=== PATIENT | male | born 1950 | race Caucasian/White ===

== ENCOUNTER 2018-03-09 14:40 | Inpatient (IN) | payer MEDICARE, BC ==
[~2018-03-09] VITALS: Ht 182.9 cm; Wt 84.1 kg
--- NOTE | ~2018-03-09 | MORECARE ---
CASE MANAGEMENT DISCHARGE SUMMARY PATIENT: ANDREA ORTEZ UNIT: [id number] ADM DATE: 03/09/18 AGE: 67 : 49 SEX: M ROOM/BED: D.2213 AUTHOR: KLAUS HEARD PHYSICIAN: REFERRING PHYSICIAN: JD ANDERSON MD DATE OF SERVICE: 03/10/18 Discharge Plan Patient Name: ANDREA ORTEZ [facility] [facility] 1950 Planned Disposition: Home with Home Health Anticipated Discharge Date: Discharge Date: Expected LOS: Initial Reviewer: [email or web address] Initial Review Date: 03/09/2018 Generated: 03/10/18 5:41 pm DCPIA - Discharge Planning Initial Assessment Updated by [email or web address]: Leah Tripp on 03/10/18 4:40 pm * Is the patient Alert and Oriented? Yes * How many steps to enter\exit or inside your home? * PCP ALEX * Pharmacy [facility] * Preadmission Environment Home with Family * ADLs Independent * List name and contact numbers for known caregivers / representatives who currently or will assist patient after discharge: GLORIA GUTIERREZBRANDEN [phone] * Verbal permission to speak to the caregivers and representatives has been obtained from the patient. Yes * Community resources currently utilized None * Additional services required to return to the preadmission environment? Yes * Can the patient safely return to the preadmission environment? Yes * Has this patient been hospitalized within the prior 30 days at any hospital? No External Providers External Provider: [facility] Next Contact Date: Service Request Date: Service Type: Resolution: Reviewer: Comments: External Provider: [facility] Next Contact Date: Service Request Date: Service Type: Resolution: Reviewer: Comments: Patient Name: ANDREA ORTEZ Page 20732 at 1641 All edits/amendments must be made on the electronic document DICTATION DATE: 03/10/18 1640 SPREADING MACHINE OPERATOR: AMBER 03/10/18 1640 RPT#: [id number] DC DATE: STATUS: ADM IN [facility] [address] [place] [address] END OF REPORT
--- NOTE | ~2018-03-09 | MORECARE ---
CASE MANAGEMENT DISCHARGE SUMMARY PATIENT: ANDREA ORTEZ UNIT: [id number] ADM DATE: 03/09/18 AGE: 67 : 49 SEX: M ROOM/BED: D.2213 AUTHOR: ORQUIDEA,DOC PHYSICIAN: REFERRING PHYSICIAN: JD ANDERSON MD DATE OF SERVICE: 03/13/18 Discharge Plan Patient Name: ANDREA ORTEZ Facility: [facility]:[place] : 1950 Planned Disposition: Home with Home Health Anticipated Discharge Date: Discharge Date: 03/11/2018 Expected LOS: Initial Reviewer: [email or web address] Initial Review Date: 03/09/2018 Generated: 03/13/18 1:18 pm Comments DCP- Discharge Planning Updated by [email or web address]: Leah Tripp on 03/11/18 1:[address] PATIENT DISCHARGING HOME TODAY WITH [facility] [employer] WALKER HAS BEEN DELIVERED TO HOSPITAL. CM TO FOLLOW AND ASSIST WITH DC PLANNING NEEDS DCP- Discharge Planning Updated by [email or web address]: Leah Tripp on 03/10/18 3:[address] Patient Name: ANDREA ORTEZ Admission Status: ER Accout number: [id number] Admission Date: 03-09-2018 : 1950 Admission Diagnosis: Attending: JD ANDERSON Current LOS: 1 Anticipated DC Date: Planned Disposition: Home with Home Health Primary Insurance: MEDICARE A & B Discharge Planning Comments: CM met with patient to assess discharge planning needs. Patient lives independently at home where he plans to return at pr. He has 5 steps to enter his home. 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 He will need a walker at [place]. I ordered a walker from [facility] . The patient would like to have home health, AIDAN with [facility]. I spoke with Kaelyn. CM will continue to follow and assist with DC planning Jailkeeper: Leah Tripp DCPIA - Discharge Planning Initial Assessment Updated by [email or web address]: Leah Tripp on 03/10/18 4:40 pm * Is the patient Alert and Oriented? Yes * How many steps to enter\exit or inside your home? * PCP JOHNSON * Pharmacy [facility] * Preadmission Environment Home with Family * ADLs Independent * List name and contact numbers for known caregivers / representatives who currently or will assist patient after discharge: ASTER HENNESSY [phone] * Verbal permission to speak to the caregivers and representatives has been obtained from the patient. Yes * Community resources currently utilized None * Additional services required to return to the preadmission environment? Yes * Can the patient safely return to the preadmission environment? Yes * Has this patient been hospitalized within the prior 30 days at any hospital? No Last DP export: 03/11/18 1:05 Patient Name: ANDREA ORTEZ Page 99203 at 1218 All edits/amendments must be made on the electronic document DICTATION DATE: 03/13/181217 MOLDER: AMBER 03/13/181217 RPT#: [id number] DC DATE:03/11/18 STATUS: DIS IN [facility] [address] [place] [address] END OF REPORT
--- NOTE | ~2018-03-09 | MORECARE ---
CASE MANAGEMENT DISCHARGE SUMMARY PATIENT: ANDREA ORTEZ UNIT: [id number] ADM DATE: 03/09/18 AGE: 67 : 49 SEX: M ROOM/BED: D.2213 AUTHOR: ORQUIDEADOC PHYSICIAN: REFERRING PHYSICIAN: JD ANDERSON MD DATE OF SERVICE: 03/11/18 Discharge Plan Patient Name: ANDREA ORTEZ Facility: [facility]:[place] : 1950 Planned Disposition: Home with Home Health Anticipated Discharge Date: Discharge Date: Expected LOS: Initial Reviewer: [email or web address] Initial Review Date: 03/09/2018 Generated: 03/11/18 3:05 pm Comments DCP- Discharge Planning Updated by [email or web address]: Leah Tripp on 03/11/18 1:[address] PATIENT DISCHARGING HOME TODAY WITH [facility] WALKER HAS BEEN DELIVERED TO HOSPITAL. CM TO FOLLOW AND ASSIST WITH DC PLANNING NEEDS DCP- Discharge Planning Updated by [email or web address]: Leah Trpip on 03/10/18 3:[address] Patient Name: ANDREA ORTEZ Admission Status: ER Accout number: [id number] Admission Date: 03-09-2018 : 1950 Admission Diagnosis: Attending: JD ANDERSON Current LOS: 1 Anticipated DC Date: Planned Disposition: Home with Home Health Primary Insurance: MEDICARE A & B Discharge Planning Comments: CM met with patient to assess discharge planning needs. Patient lives independently at home where he plans to return at hi. He has 5 steps to enter his home. 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 He will need a walker at [place]. I ordered a walker from [facility] . The patient would like to have home health, AIDAN with [facility]. I spoke with Kaelyn. CM will continue to follow and assist with DC planning Injection Molding Machine Offbearer: Leah Tripp DCPIA - Discharge Planning Initial Assessment Updated by [email or web address]: Leah Tripp on 03/10/18 4:40 pm * Is the patient Alert and Oriented? Yes * How many steps to enter\exit or inside your home? * PCP JOHNSON * Pharmacy [facility] * Preadmission Environment Home with Family * ADLs Independent * List name and contact numbers for known caregivers / representatives who currently or will assist patient after discharge: ASTER HENNESSY [phone] * Verbal permission to speak to the caregivers and representatives has been obtained from the patient. Yes * Community resources currently utilized None * Additional services required to return to the preadmission environment? Yes * Can the patient safely return to the preadmission environment? Yes * Has this patient been hospitalized within the prior 30 days at any hospital? No Last DP export: 03/10/18 3:50 Patient Name: ANDREA ORTEZ Page 78534 at 1405 All edits/amendments must be made on the electronic document DICTATION DATE: 03/11/181404 FLAT GRINDER OPERATOR: AMBER 03/11/18 140 RPT#: [id number] DC DATE: STATUS: ADM IN [facility] [address] [place] [address] END OF REPORT
--- NOTE | ~2018-03-09 | MORECARE ---
CASE MANAGEMENT DISCHARGE SUMMARY PATIENT: ANDREA ORTEZ UNIT: [id number] ADM DATE: 03/09/18 AGE: 67 : 49 SEX: M ROOM/BED: D.2213 AUTHOR: ORQUIDEADOC PHYSICIAN: REFERRING PHYSICIAN: JD ANDERSON MD DATE OF SERVICE: 03/10/18 Discharge Plan Patient Name: ANDREA ORTEZ Facility: [facility]:[place] : 1950 Planned Disposition: Home with Home Health Anticipated Discharge Date: Discharge Date: Expected LOS: Initial Reviewer: [email or web address] Initial Review Date: 03/09/2018 Generated: 03/10/18 5:49 pm Comments DCP- Discharge Planning Updated by [email or web address]: Leah Tripp on 03/10/18 3:[address] Patient Name: ANDREA ORTEZ Admission Status: ER Accout number: [id number] Admission Date: 03-09-2018 : 1950 Admission Diagnosis: Attending: JD ANDERSON Current LOS: 1 Anticipated DC Date: Planned Disposition: Home with Home Health Primary Insurance: MEDICARE A & B Discharge Planning Comments: CM met with patient to assess discharge planning needs. Patient lives independently at home where he plans to return at dc. He has 5 steps to enter his home. Aster will be his driver material handler home. He will need a walker at [place]. I ordered a walker from [facility] . The patient would like to have home health, AIDAN with [facility]. I spoke with Kaelyn. CM will continue to follow and assist with DC planning Gas Turbine Powerplant Mechanic Helper: Leah Tripp DCPIA - Discharge Planning Initial Assessment Updated by [email or web address]: Leah Tripp on 03/10/18 4:40 pm * Is the patient Alert and Oriented? Yes * How many steps to enter\exit or inside your home? * PCP ALEX * Pharmacy [facility] * Preadmission Environment Home with Family * ADLs Independent * List name and contact numbers for known caregivers / representatives who currently or will assist patient after discharge: ASTER HENNESSY [phone] * Verbal permission to speak to the caregivers and representatives has been obtained from the patient. Yes * Community resources currently utilized None * Additional services required to return to the preadmission environment? Yes * Can the patient safely return to the preadmission environment? Yes * Has this patient been hospitalized within the prior 30 days at any hospital? No Last DP export: 03/10/18 3:41 Patient Name: ANDREA ORTEZ Page 58382 at 1650 All edits/amendments must be made on the electronic document DICTATION DATE: 03/10/181648 BABY FORMULA WORKER: AMBER 03/10/181648 RPT#: [id number] DC DATE: STATUS: ADM IN [facility] [address] [place] [address] END OF REPORT
[2018-03-09] MEDS ORDERED: BAYER CHEWABLE81 MG PO (14:49)
[2018-03-09] MEDS ORDERED: SYNTHROID125 MCG PO (14:49)
[2018-03-09] MEDS ORDERED: ZOFRAN ODT4 MG/UDTAB PO (14:49)
[2018-03-09] MEDS ORDERED: FAMVIR500 MG PO (14:49)
[2018-03-09] MEDS ORDERED: LOTENSIN20 MG PO (14:49)
[2018-03-09 16:41] LABS: HEMATOCRIT 42.5 % (42.0-54.0); HEMOGLOBIN 13.9 g/dL (13.5-17.5); MCH 30.7 pg (26.0-34.0); MCHC 32.7 g/dL (31.0-37.0); MCV 93.8 fL (80.0-100.0); MEAN PLATELET VOLUME 10.6 fL (7.4-10.4); PLATELET COUNT 158 10x3/uL (130-400); RBC 4.53 10x6/uL (4.20-6.10); RDW 12.4 % (11.5-14.5); WBC 60.4 10x3/uL (4.8-10.8)
[2018-03-09 16:44] LABS: APTT 33.4 SECONDS (22.8-39.4); INR 1.05 (0.85-1.17); PROTIME 13.2 SECONDS (11.6-15.0)
[2018-03-09 16:50] LABS: ANION GAP 10.4 mmol/L (8-16); BILIRUBIN - TOTAL 0.34 mg/dL (0.2-1.3); CALCIUM 9.2 mg/dL (8.5-10.1); CREATININE - SERUM 1.1 mg/dL (0.6-1.3); POTASSIUM - SERUM 4.4 mmol/L (3.5-5.1); PROTEIN - SERUM 7.3 g/dL (6.4-8.2)
[2018-03-09 17:04] LABS: LYMPHOCYTES 83 % (15-50); NEUTROPHILS 17 % (40-80)
[2018-03-09 17:05] LABS: PLATELET ESTIMATE NORMAL
[2018-03-09 20:00] VITALS: BP 128/61
[2018-03-10] VITALS (7 sets, daily range): BP systolic 115–142; BP diastolic 61–70; Ht 182.9 cm; Wt 84.1 kg
[2018-03-10 10:24] LABS: ANION GAP 13.8 mmol/L (8-16); CALCIUM 8.9 mg/dL (8.5-10.1); CARBON DIOXIDE 26.1 mmol/L (21.0-32.0); CREATININE - SERUM 1.1 mg/dL (0.6-1.3); POTASSIUM - SERUM 3.9 mmol/L (3.5-5.1)
[2018-03-10 10:42] LABS: BASOPHILS 0.1 % (0-2); EOSINOPHILS 0.5 % (0-7); HEMATOCRIT 43.8 % (42.0-54.0); HEMOGLOBIN 14.4 g/dL (13.5-17.5); IMMATURE GRANULOCYTES 0.4 % (0-5); LYMPHOCYTES 83.6 % (15-50); MCHC 32.9 g/dL (31.0-37.0); MCV 94.2 fL (80.0-100.0); MEAN PLATELET VOLUME 10.9 fL (7.4-10.4); MONOCYTES 2.6 % (2-11); NEUTROPHILS 12.8 % (40-80); PLATELET COUNT 180 10x3/uL (130-400); RBC 4.65 10x6/uL (4.20-6.10); RDW 12.6 % (11.5-14.5)
[2018-03-10 10:43] LABS: WBC 79.4 10x3/uL (4.8-10.8)
[2018-03-11] VITALS: BP 139/72
[2018-03-11 04:00] VITALS: BP 133/73
[2018-03-11 05:02] LABS: BASOPHILS 0.2 % (0-2); EOSINOPHILS 1.2 % (0-7); HEMATOCRIT 41.9 % (42.0-54.0); HEMOGLOBIN 13.5 g/dL (13.5-17.5); IMMATURE GRANULOCYTES 0.2 % (0-5); LYMPHOCYTES 85.2 % (15-50); MCH 30.5 pg (26.0-34.0); MCHC 32.2 g/dL (31.0-37.0); MCV 94.8 fL (80.0-100.0); MEAN PLATELET VOLUME 10.6 fL (7.4-10.4); MONOCYTES 3.1 % (2-11); NEUTROPHILS 10.1 % (40-80); PLATELET COUNT 146 10x3/uL (130-400); RBC 4.42 10x6/uL (4.20-6.10); RDW 12.6 % (11.5-14.5)
[2018-03-11 05:03] LABS: ANION GAP 13.8 mmol/L (8-16); CALCIUM 8.2 mg/dL (8.5-10.1); CARBON DIOXIDE 26.4 mmol/L (21.0-32.0); CREATININE - SERUM 1.1 mg/dL (0.6-1.3); POTASSIUM - SERUM 4.2 mmol/L (3.5-5.1)
[2018-03-11 05:04] LABS: WBC 54.6 10x3/uL (4.8-10.8)
[2018-03-11] MEDS ORDERED: ULTRAM50 MG PO (10:32)
[2018-03-11] MEDS ORDERED: COLACE100 MG PO (10:33)
[2018-03-11] MEDS ORDERED: IBUPROFEN400 MG PO (10:33)
[2018-03-11 12:46] VITALS: BP 126/75
== END 2018-03-11 15:10 | disposition home health service (06) | DRG 536 ==
LOC: D.ER 14:40 → D.MS 17:52
PROVIDERS: Emergency Medicine; Internal Medicine Nephrology
DX: S72.144A Nondisplaced intertrochanteric fracture of right femur, initial encounter for closed fracture (principal); C91.10 Chronic lymphocytic leukemia of B-cell type not having achieved remission; I10 Essential (primary) hypertension

== ENCOUNTER → 2018-04-16 10:18 | Outpatient (CLI) | payer MEDICARE, BC ==
[2018-03-10 03:11] VITALS: BMI 25.1
[~2018-04-16 10:18] MED LIST: BAYER CHEWABLE81 MG PO; COLACE100 MG PO; FAMVIR500 MG PO; IBUPROFEN400 MG PO; LOTENSIN20 MG PO; SYNTHROID125 MCG PO; ULTRAM50 MG PO; ZOFRAN ODT4 MG/UDTAB PO
== END | disposition home or self-care (01) ==
LOC: D.MRI 10:18
DX: R22.9 Localized swelling, mass and lump, unspecified (principal)

== ENCOUNTER → 2018-04-27 18:01 | Outpatient (CLI) | payer MEDICARE, BC ==
[2018-03-10 03:11] VITALS: BMI 25.1
[2018-04-27 20:07] LABS: ALBUMIN 4.1 g/dL (3.4-5.0); ANION GAP 16.5 mmol/L (8-16); BILIRUBIN - TOTAL 0.37 mg/dL (0.2-1.3); CALCIUM 8.4 mg/dL (8.5-10.1); CARBON DIOXIDE 24.8 mmol/L (21.0-32.0); CREATININE - SERUM 1.1 mg/dL (0.6-1.3); POTASSIUM - SERUM 4.3 mmol/L (3.5-5.1); PROTEIN - SERUM 7.1 g/dL (6.4-8.2)
== END | disposition home or self-care (01) ==
LOC: D.LABREF 18:01
PROVIDERS: Orthopaedic Surgery
DX: R22.41 Localized swelling, mass and lump, right lower limb (principal)

== ENCOUNTER → 2018-05-08 08:16 | Outpatient (CLI) | payer MEDICARE, BC ==
[2018-03-10 03:11] VITALS: BMI 25.1
== END | disposition home or self-care (01) ==
LOC: D.MRI 08:16
DX: R22.9 Localized swelling, mass and lump, unspecified (principal)

== ENCOUNTER → 2018-07-14 07:56 | Outpatient (CLI) | payer MEDICARE, BC ==
[2018-03-10 03:11] VITALS: BMI 25.1
== END | disposition home or self-care (01) ==
LOC: D.HCCARDIO 07:56
PROVIDERS: ATTEND Internal Medicine Cardiovascular Disease
DX: I48.91 Unspecified atrial fibrillation (principal)

== ENCOUNTER → 2019-10-19 10:59 | Outpatient (CLI) | payer MEDICARE, BC ==
[2018-03-10 03:11] VITALS: BMI 25.1
== END | disposition home or self-care (01) ==
LOC: D.HCCECHO 10:59
PROVIDERS: ATTEND Internal Medicine Cardiovascular Disease
DX: I48.91 Unspecified atrial fibrillation (principal)

== ENCOUNTER 2020-06-29 11:39 | Day surgery (SDC) | payer MEDICARE, BC ==
[~2020-06-29] VITALS: Ht 182.9 cm; Wt 84.4 kg
--- NOTE | ~2020-06-29 | HEMODYNAMI ---
PATIENT:ANDREA ORTEZ MEDICAL RECORD: [id number] : [birth year] LOCATION:[facility] ADMISSION DATE: 06/29/20 Generatedon:115:02 Patient name: ANDREA ORTEZ Patient #: [id number] SSN: : 1950 Date of study: 06/29/2020 Page: Of Hemodynamic Procedure Report Patient Data Patient Demographics Procedure consent was obtained First Name: ANDREA Gender: Male Last Name: NEELIMA : 1950 [facility] Initial: BORA Age: 69 year(s) Patient #: [id number] Race: Unknown Additional ID: [id number] Contact details [address]: [address] [place] [address] State: [place] City: [place] Zip code: [address] Past Medical History Allergies Allergen Reaction Date Comments Reported Morphine 06/29/2020 Admission Admission Data Admission Date: 06/29/2020 Admission Time: 11:39 Procedure Procedure Types Cath Procedure Diagnostic Procedure PPM/ICD PPM Dual Implant Sedation Charges Moderate Sedation 25-39 minutes Procedure Description Procedure Date Procedure Date: 06/29/2020 Procedure Start Time: 14:34 Procedure End Time: 14:58 Procedure Staff Name Function Nas Manriquez MD Performing Physician Ruth Walker RT Monitor Ana Villatoro RT Scrub Adina Ramos RN Nurse Ismael Vazquez MD Assisting physician Procedure Data Cath Procedure Fluoroscopy Diagnostic fluoroscopy Total fluoroscopy Time: 2.3 time: 2.3 min min Diagnostic fluoroscopy Total fluoroscopy dose: dose: 58.15 mGy 58.15 mGy Estimated blood loss: 10 ml Procedure Complications No complications Procedure Medications Medication Administration Route Dosage Oxygen etCO2 Nasal cannula 2 l/min Ancef (1Gm/50ml NS) I.V.P.B 1 g Ancef Irrigation Topical 1 g (1gm/500ml NS) Lidocaine 1% added to field 20 0.9% NaCl I.V. Zofran I.V. 4 mg Versed I.V. 1 mg Fentanyl I.V. 50 mcg Versed I.V. 1 mg Fentanyl I.V. 50 mcg Versed I.V. 1 mg Fentanyl I.V. 50 mcg Versed I.V. 1 mg Hemodynamics Rest Heart Rate: 54 (bpm) Snapshots Pre Cath Intra NCS Post Cath Vital Signs Time Heart Resp SPO2 etCO2 NIBP (mmHg) Rhythm Pain Sedation Rate (ipm) (%) (mmHg) Status Level (bpm) 14:18:01 47 24 97 28.2 122/75(106) SB (Missing) 10(A) 14:22:11 47 11 97 37.1 123/66(86) SB (Missing) 10(A) 14:26:19 47 13 97 35.6 132/74(88) SB (Missing) 10(A) 14:30:31 45 14 98 36.4 119/72(86) SB (Missing) 10(A) 14:34:38 94 13 97 36.3 122/70(89) SB (Missing) 9(A) 14:38:46 42 14 97 26.7 120/69(95) SB (Missing) 9(A) 14:42:52 65 13 98 36.3 122/77(91) SB (Missing) 9(A) 14:46:58 71 10 97 36.3 118/72(80) SB (Missing) 9(A) 14:51:01 79 13 97 37.8 124/77(100) SB (Missing) 9(A) 14:55:07 41 14 97 35.6 122/78(94) SB (Missing) 10(A) Medications Time Medication Route Dose Verified Delivered Reason Notes Eff ectiveness by by 14:17:19 Oxygen etCO2 2 Nas Holden used for Nasal l/min St Davi Ramos cementer machine joiner cannula 14:17:42 Ancef I.V.P.B 1 g Nas Holden used for (1Gm/50ml St Davi Ramos cementer machine joiner NS) 14:17:49 Ancef Topical 1 g Nas Holden used for Irrigation St Davi Ramos cementer machine joiner (1gm/500ml NS) 14:21:57 Lidocaine added 20ml Nas Guevara for local 1% to vial St Davi Vazquez MD anesthetic field x 2 14:22:08 0.9% NaCl I.V. kvo Nas Holden Per ml/hr St Davi Ramos RN physician 14:22:16 Zofran I.V. 4 mg Nas Holden Per Pt had St Davi Ramos RN physician vasyl AGUILAR procedure and needs zofran prior to medications for sedation. 14:29:35 Versed I.V. 1 mg Nas [address] for [facility] Davi Ramos RN sedation 14:29:45 Fentanyl I.V. 50 Nas Buffie for [facility] St Davi Ramos RN sedation 14:33:25 Versed I.V. 1 mg Nas Bonillaie for [facility] Davi Ramos RN sedation 14:33:30 Fentanyl I.V. 50 Nas Bonillaie for [facility] St Davi Ramos RN sedation MD 14:39:38 Versed I.V. 1 mg Nas Bonillaie for St Davi Ramos RN sedation 14:39:42 Fentanyl I.V. 50 Nas Buffie for [facility] St Davi Ramos RN sedation 14:44:37 Versed I.V. 1 mg Nas Bonillaie for St Davi Ramos RN sedation MD Procedure Log Time Note 13:58:09 Informed consent obtained and on chart 13:58:36 Procedure Status PPM/ Gen Change/ Lead Revision/ Temp. 13:58:38 Adina Ramos RN sent for patient. Start room use. 14:05:19 Time tracking: Regular hours (M-F 7:00 - 5:00) 14:05:23 Plan of Care:Hemodynamics will remain stable., Cardiac rhythm will remain stable., Comfort level will be maintained., Respiratory function will remain adequate., Patient/ family verbilizes understanding of procedure., Procedure tolerated without complication., Recovers from procedure without complications.. 14:07:32 H&P Date Dictated: 06/26/2020 Within 30 days and on chart., H&P Addendum completed by physician on day of procedure. (MUST COMPLETE FOR ALL OUTPATIENTS). 14:08:25 Patient allergic to Morphine 14:09:09 Patient received from Pre/Post Procedure Room to CCL 3 Alert and oriented. Tansferred to table in Supine position. 14:09:10 Warm blankets applied, and florencia hugger turned on for patient comfort. 14:09:11 Correct patient and procedure confirmed by team. 14:09:11 ECG and BP/O2 sat monitors applied to patient. 14:17:05 Vital chart was started 14:17:19 Oxygen 2 l/min etCO2 Nasal cannula was administered by Buffie Ramos RN; used for procedure; Verbal order read back and verified. 14:17:42 Ancef (1Gm/50ml NS) 1 g I.V.P.B was administered by Adina Ramos RN; used for procedure; Verbal order read back and verified. 14:17:49 Ancef Irrigation (1gm/500ml NS) 1 g Topical was administered by Adina Ramos RN; used for procedure; Verbal order read back and verified. 14:19:33 Baseline sample Acquired. 14:19:39 Rhythm: atrial fibrillation, atrial flutter 14:19:42 Full Disclosure recording started 14:19:46 Family in patients room. 14:19:49 Patient NPO since Midnight. 14:19:51 Is the patient allergic to Iodine/contrast media? No. 14:19:53 Is patient on blood thinner?Yes 14:19:59 ACC The patient was administered the following blood thiners within the last 24 hours: Eliquis 14:20:23 Eliquis stopped 06/27/20 for procedure 14:20:26 Patient diabetic? No. 14:20:33 Snore? Unknown 14:20:34 Sleep apnea? No 14:20:36 Sticks out tongue? No 14:20:39 Dentures? Yes ? 14:20:48 IV patent on arrival in left forearm with 0.9% NaCl at KVO. 14:21:57 Lidocaine 1% 20ml vial x 2 added to field was administered by Ismael Vazquez MD; for local anesthetic; Verbal order read back and verified. 14:22:08 0.9% NaCl kvo ml/hr I.V. was administered by Adina Ramos RN; Per physician; Verbal order read back and verified. 14:22:16 Zofran 4 mg I.V. was administered by Adina Ramos RN; Per physician; Pt had vasyl procedure and needs zofran prior to medications for sedation. Verbal order read back and verified. 14:23:22 Lab results completed and on chart. 14::26 Alarms reviewed by R. N. 14:: Sharps counted by scrub and verified by R.N. 14:23:28 Physician arrived 14:29:19 --------ALL STOP TIME OUT------ : Final Timeout: patient, procedure, and site verified with staff and physician. All members of the team are in agreement. 14:29:35 Versed 1 mg I.V. was administered by Adina Ramos RN; for sedation; Verbal order read back and verified. 14:29:38 Left chest site verified by team. 14:29:45 Fentanyl 50 mcg I.V. was administered by Adina Ramos RN; for sedation; Verbal order read back and verified. 14:30:04 Fire Safety Assessment: A--An alcohol-based skin anteseptic being used preoperatively., B--The operative or invasive procedure is being performed above the xiphoid process or in the oropharynx., C--Open oxygen or nitrous oxide is being used. 14:30:08 Physical assessment completed. ASA score P 2 - A patient with mild systemic disease as per Nas Manriquez MD. 14:30:14 Sedation plan: IV Moderate Sedation Medication:Versed, Fentanyl 14:30:24 Use device set JADON PPM 14:30:30 Medtronic market survey representative falguni present for procedure. 14:30:41 Grounding pad site Left thigh. 14:30:43 Grounding pad site free from injury. 14:33:25 Versed 1 mg I.V. was administered by Adina Ramos RN; for sedation; Verbal order read back and verified. 14:33:30 Fentanyl 50 mcg I.V. was administered by Adina Ramos RN; for sedation; Verbal order read back and verified. 14:33:37 2-0 Ticron Multipack ([id number]) opened to sterile field. 14:33:38 3-0 Vicryl Single Pack [id number] opened to sterile field. 14:33:38 5-0 Monocryl PS2 [id number] opened to sterile field. 14:33:39 Cautery Tip Manager Bar opened to sterile field. 14:33:40 Cautery Pushbutton Pencil opened to sterile field. 14:33:41 Mepilex Dressing ([id number]) opened to sterile field. 14:33:44 Immobilizer Extra Large opened to sterile field. 14:33:47 Medtronic 4074-52 PPM Lead opened to sterile field. 14:33:48 Medtronic 4574-45 PPM Lead opened to sterile field. 14:33:[address] Generator [id number] opened to sterile field. 14:34:28 Procedure started. 14:34:48 Lidocaine 1% was administered to left subclavicular area by Ismael Vazquez MD . 14:34:56 Incision made to left subclavicular area. 14:34:58 Generator pocket made/opened. 14:39:38 Versed 1 mg I.V. was administered by Adina Ramos RN; for sedation; Verbal order read back and verified. 14:39:42 Fentanyl 50 mcg I.V. was administered by Adina Ramos RN; for sedation; Verbal order read back and verified. 14:40:08 Left subclavian vein accessed with 7Fr Peel Away Sheath. 14:40:15 Left subclavian vein accessed with 7Fr Peel Away Sheath. 14:40:42 Ventricular lead inserted and advanced. 14:40:45 Atrial lead inserted and advanced. 14:40:51 Peel-a-way sheath was split and removed. 14:40:52 Peel-a-way sheath was split and removed. 14:43:21 Ventricular lead tested. 14:43:28 Atrial lead tested. 14:43:38 PPM Dual was attached to lead(s) and inserted into pocket. 14:43:54 PPM Dual was inserted subcutaneously to left chest. 14:43:57 Device pocket was irrigated with Ancef. 14:44:16 Atrial lead attachment was completed with 2-0 silk. 14:44:19 Ventricular lead attachment was completed with 2-0 silk. 14:44:28 Subcutaneous closure was completed with 3-0 vicryl. 14:44:34 Skin closure was completed with 5-0 monocryl. 14:44:37 Versed 1 mg I.V. was administered by Adina Ramos RN; for sedation; Verbal order read back and verified. 14:46:01 Generator was sutured in place with 2-0 silk. 14:46:17 Parameters-- Generator: Mode: DDIR. Lower Rate: 60bpm. Upper Rate: 120bpm. 14:55:00 Parameters--Ventricular P/R Wave: 7.5mV. Current: .3mA; Threshold: .4V; Impedence: 1543OHMS. 14:55:39 Parameters--Atrial P/R Wave: 2.1mV. Current: .5mA; Threshold: .2V; Impedence: 682OHMS. 14:55:44 Procedure ended.(Physican Out) 14:55:51 Fluoroscopy time 02.30 minutes. 14:56:09 Fluoroscopy dose: 58.15 mGy 14:56:09 Flurop Dose total: 58.15 14:56:26 Dose Area Product 762 mGy/cm. 14:56:29 Sharps counted by scrub and verified by R.N. 14:56:41 Insertion/operative site no bleeding no hematoma. 14:56:50 Post procedure rhythm: paced 14:56:54 Estimated blood loss: 10 ml 14:56:56 Post procedure instruction explained to patient.Patient verbalizes understanding. 14:57:19 Patient needs reinforcement of post procedure teaching. 14:57:45 Procedure type changed to Cath procedure, Diagnostic procedure, PPM/ICD, PPM Dual Implant, Sedation Charges, Moderate Sedation 25-39 minutes 14:57:47 Procedure and supply charges have been captured, reviewed, submitted and are correct. 14:58:12 Procedure Complication : No complications 14:58:15 Vital chart was stopped 14:58:33 Operative report dictated upon procedure completion. 14:58:37 Patient transfered to Pre/Post Procedure Room with Stretcher. 14:58:39 Procedure ended. 14:58:39 Full Disclosure recording stopped 14:58:42 End room use (Document Last) 14:58:42 End room use (Document Last) Device Usage Item Name Manufacture Quantity Catalog Hospital Part Current Minima l Lot# / Number Charge Number Stock Stock Serial# Code 2-0 Ticron Ethicon 3 [id number] 713526 08626 [id number] 5 Multipack ([id number]) 3-0 Vicryl Ethicon 1 [id number] 240218 697396 097280 5 Single Pack [id number] 5-0 Monocryl Ethicon 1 [id number] 610173 601293 987736 5 PS2 Y495G Cautery Tip Microtek 1 [id number] 241838 442224 109273 5 [employer] Cautery Microtek 1 [id number] 905638 46095 680591 5 Pushbutton [employer] Inc[employer] Pencil Mepilex Cardinal 1 077255 878169 216271 023722 5 [facility] ([id number]) Immobilizer Cardinal 1 72-11018 371753 071022 283662 5 Extra Large Health Medtronic Medtronic 1 4074-52 140337 219013 680470 5 4074-52 PPM [id number] Lead EXP 12/12/2021 Medtronic Medtronic 1 4574-45 835185 495476 126907 5 4574-45 PPM [id number] Lead EXP. 12/05/2021 Medtronic Medtronic 1 [id number] 730078 [id number] 586907 [address] [id number] Generator 10/04 Signature Audit [place] Stage Time Signature Unsigned Intra-Procedure 06/29/2020 Ruth Walker 3:01:08 PM RT(R) Intra-Procedure 06/29/2020 Adina Ramos RN 3:01:45 PM Intra-Procedure 06/29/2020 Nas Ibrahim 3:02:03 PM Davi AGUILAR [facility] [address] [place] [address]
--- NOTE | ~2020-06-29 | OP ---
PATIENT NAME: ANDREA VANESSA MEDICAL RECORD: [id number] :48 LOCATION:D.CAT ADMISSION DATE: SURGEON: LUÍS HAMILTON MD DATE OF OPERATION: 06/29/2020 PROCEDURE: Lead portion of permanent pacemaker placement. INDICATION: Sick sinus with PAF and aaron escape rhythm. SURGEON: Dr. Vazquez. DESCRIPTION OF PROCEDURE: After left subclavian was cannulated via modified Seldinger technique via Dr. Vazquez, first under fluoroscopic guidance placed the RV in apex without difficulty. After adequate R waves and thresholds were obtained, the right atrial lead was placed in the right atrial appendage without difficulty. After adequate P waves and thresholds were obtained, the leads were attached to appropriate poles in the generator and pocket was closed by Dr. Vazquez. IMPRESSION: Successful lead portion of permanent pacemaker placement on Andrea Vanessa. COMPLICATIONS: None. ESTIMATED BLOOD LOSS: Minimal. DISPOSITION: To the floor, stable. TRANSINT:[id number] Voice Confirmation ID: [id number] DOCUMENT ID: [id number] 07/03/2020 Edited account number, dmm. LUÍS HAMILTON MD CC: [id number] DICTATION DATE: 06/29/20 1453 [employer]PER[employer] CREW MEMBER: 06/29/20 2335 [facility] 06/29/20 [place] [id number] [place] [id number]
--- NOTE | ~2020-06-29 | OP ---
PATIENT NAME: ANDREA ORTEZ MEDICAL RECORD: [id number] :48 LOCATION:D.CAT ADMISSION DATE: SURGEON: LANCE DIOP MD DATE OF OPERATION: 06/29/2020 PREOPERATIVE DIAGNOSIS: Paroxysmal atrial fibrillation with pauses. POSTOPERATIVE DIAGNOSIS: Paroxysmal atrial fibrillation with pauses. PROCEDURE: Left subclavian vein dual lead pacemaker placement. SURGEON: Lacne Diop MD CO-SURGEON: Nas Leach MD REPORT OF OPERATION: The patient's left chest was prepped and draped in sterile fashion. A total of 20 mL of 1% lidocaine with epinephrine was infused into the surrounding tissues. A skin incision was made in the left upper outer quadrant and a subcutaneous pouch was made over the pectoral fascia. Needle was used to cannulate the left subclavian vein and guidewires were advanced with ease. Fluoroscopy was used to note that the wires were in good position in the venous system, a dilator trocar device were placed over the wires and the wires and dilators were removed. The leads were advanced through the trocars until they rested in the superior vena cava. Dr. Laech then positioned the leads appropriately in the atrium and ventricle. Once the leads were noted to be in good position and these were sutured into place with 2-0 Ti-Cron. The leads were affixed to the pacemaker, which was placed into the subcutaneous pouch. The pacemaker was sutured into the pectoral fascia with interrupted 2-0 Ti-Cron. The wound was then irrigated out with antibiotic solution. The subcutaneous tissues were reapproximated with interrupted 3-0 Vicryl and the skin was closed with running subcutaneous 5-0 Monocryl. COMPLICATIONS: None. CONDITION: Stable. ANESTHESIA: Local MAC. BLOOD LOSS: Minimal. TRANSINT:[id number] Voice Confirmation ID: [id number] DOCUMENT ID: [id number] LANCE DIOP MD CC: [id number] DICTATION DATE: 06/29/20 1501 MEDICAL DOCTOR MD/MEDICAL DIRECTOR: 06/29/20 2324 [facility] 06/29/20 [place] [id number]
[2020-06-29] MEDS ORDERED: ELIQUIS2.5 MG (12:25)
[2020-06-29] MEDS ORDERED: BETAPACE 80 MG80 MG (12:25)
[2020-06-29] MEDS ORDERED: BETAPACE 80 MG80 MG PO (12:28)
[2020-06-29] MEDS ORDERED: ELIQUIS5 MG PO (12:29)
[2020-06-29 12:44] VITALS: BP 117/60; Ht 182.9 cm; Wt 84.4 kg
[2020-06-29 13:00] LABS: INR 1.13 (0.85-1.17); PROTIME 13.4 SECONDS (11.6-15.0)
[2020-06-29 13:01] LABS: APTT 32.4 SECONDS (22.8-39.4)
[2020-06-29 13:08] LABS: ANION GAP 13.2 mmol/L (8-16); CALCIUM 9.6 mg/dL (8.5-10.1); CARBON DIOXIDE 28.3 mmol/L (21.0-32.0); CREATININE - SERUM 1.1 mg/dL (0.6-1.3); POTASSIUM - SERUM 4.5 mmol/L (3.5-5.1)
[2020-06-29 13:18] LABS: HEMATOCRIT 44.8 % (42.0-54.0); HEMOGLOBIN 14.4 g/dL (13.5-17.5); MCH 30.4 pg (26.0-34.0); MCHC 32.1 g/dL (31.0-37.0); MCV 94.7 fL (80.0-100.0); MEAN PLATELET VOLUME 10.4 fL (7.4-10.4); RBC 4.73 10x6/uL (4.20-6.10); RDW 13.1 % (11.5-14.5)
[2020-06-29 13:21] LABS: WBC 62.5 10x3/uL (4.8-10.8)
--- NOTE | 2020-06-29 15:10 | NUR ---
PT REC'D TO COUNTY ASSESSOR RECOVERY ROOM 3 VIA STRETCHER. MONITORS ESTAB. AT BS. SEE MEDICAL CODING MANAGER FLOWSHEETS. ALARMS ON AND C/L IN REACH.
--- NOTE | 2020-06-29 15:25 | NUR ---
PCXR DONE. L CHEST DSG C/D/I, NO REDNESS OR DRAINAGE NOTED. VSS. PT DENIES PAIN OR NEEDS. ALARMS ON AND C/L IN REACH.
--- NOTE | 2020-06-29 15:55 | NUR ---
L CHEST DSG C/D/I, NO REDNESS OR DRAINAGE NOTED. CM - APACED AT 60, NO ECTOPY NOTED. PT RESTING QUIETLY. REFUSED SANDWICH, FRESH WATER PROVIDED.
--- NOTE | 2020-06-29 16:10 | NUR ---
PIV D/C'D INTACT, DSG APPLIED. PT ASSISTED WITH SLING AND DRESSING. PT TO BR INDEPENDENTLY.
--- NOTE | 2020-06-29 16:22 | NUR ---
ALL DISCHARGE INSTRUCTIONS REVIEWED WITH PT AND HIS - INCLUDING RESTRICTIONS, MEDS AND F/U APPT. BOTH VERBALIZE UNDERSTANDING.
--- NOTE | 2020-06-29 16:25 | NUR ---
PT D/C'D VIA WC TO PRIVATE VEHICLE WITH ALL PAPERWORK AND BELONGINGS.
== END 2020-06-29 16:25 | disposition home or self-care (01) ==
LOC: D.CATH 11:39
PROVIDERS: ATTEND Internal Medicine Interventional Cardiology
DX: I49.5 Sick sinus syndrome (principal); I48.91 Unspecified atrial fibrillation; I10 Essential (primary) hypertension; E78.5 Hyperlipidemia, unspecified